=== PATIENT | male | born 1965 | race Caucasian/White ===

== ENCOUNTER 2016-06-07 07:59 | Day surgery (SDC) | payer OTHER ==
[2016-06-06 11:03] VITALS: BMI 23.5
[2016-06-07 11:16] VITALS: BP 145/92; PULSE 84; TEMP 98
--- NOTE | 2016-06-08 14:09 | PATH ---
Surgical Pathology Report Patient Name: VANESA MURRIETA [facility]. Rec. #: [id number] /Age/Gender: 1965 (Age: 51) / M Account: [id number] Location: [facility]-ENDOSCOPY Taken: 06/07/2016 Received: 06/07/2016 Reported: 06/08/2016 Physicians: Ned Callejas D.O. Specimen(s) Received A: BX ANGULARIS OF BODY B: BX STOMACH C: BX DISTAL ESOPHAGUS D: BX MID PROXIMAL ESOPHAGUS Clinical History Dysphagia Gastritis, dysphagia Final Diagnosis A. STOMACH, ANGULARIS AND BODY, BIOPSY: GASTRIC OXYNTIC MUCOSA WITH MODERATE CHRONIC GASTRITIS. IMMUNOSTAIN FOR H. PYLORI IS NEGATIVE FOR ORGANISMS. B. STOMACH, BODY, BIOPSY: GASTRIC OXYNTIC MUCOSA WITH MODERATE CHRONIC GASTRITIS. IMMUNOSTAIN FOR H. PYLORI IS NEGATIVE FOR ORGANISMS. C. ESOPHAGUS, DISTAL, BIOPSY: SQUAMOUS AND COLUMNAR GASTRIC TYPE MUCOSA WITH CHRONIC INFLAMMATION AND MARKED REFLUX TYPE CHANGES. NO INTESTINAL METAPLASIA (MUÑOZ'S ESOPHAGUS) IDENTIFIED. NO EVIDENCE OF EOSINOPHILIC ESOPHAGITIS. D. ESOPHAGUS, MID AND PROXIMAL, BIOPSY: SQUAMOUS EPITHELIUM WITH FOCAL ACTIVE AND CHRONIC INFLAMMATION AND REFLUX TYPE CHANGES. NO EVIDENCE OF EOSINOPHILIC ESOPHAGITIS. SEPARATE FRAGMENT OF COLUMNAR GASTRIC-TYPE MUCOSA; NO INTESTINAL METAPLASIA IDENTIFIED. NO FUNGAL ORGANISMS IDENTIFIED WITH PAS STAIN. Electronically Signed Raman Rosas M.D. Gross Description A. Received in formalin, labeled "biopsy angularis and body" are 3 yarbrough, irregular portions of soft tissue averaging 0.2 cm in greatest dimension. The specimens are submitted in toto in one cassette. B. Received in formalin, labeled "biopsy body of stomach" are 2 yarbrough, irregular portions of soft tissue measuring 0.2 and 0.3 cm in greatest dimension. The specimens are submitted in toto in one cassette. C. Received in formalin, labeled "biopsy distal esophagus" are 3 yarbrough, irregular portions of soft tissue ranging from 0.2-0.4 cm in greatest dimension. The specimens are submitted in toto in one cassette. D. Received in formalin, labeled "biopsy mid proximal esophagus" are 4 yarbrough, irregular portions of soft tissue ranging from 0.1-0.4 cm in greatest dimension. The specimens are submitted in toto in one cassette. 06/07/201606/07/2016
== END 2016-06-07 11:22 | disposition home or self-care (01) ==
LOC: JASU-ENDO 07:59
PROVIDERS: ATTEND Internal Medicine Gastroenterology
PROC: 0DB68ZX Excision of Stomach, Via Natural or Artificial Opening Endoscopic, Diagnostic (ICD-10-PCS; 2016-06-07)
PROC: 0DB18ZX Excision of Upper Esophagus, Via Natural or Artificial Opening Endoscopic, Diagnostic (ICD-10-PCS; 2016-06-07)
PROC: 0DB28ZX Excision of Middle Esophagus, Via Natural or Artificial Opening Endoscopic, Diagnostic (ICD-10-PCS; 2016-06-07)
PROC: 0DB38ZX Excision of Lower Esophagus, Via Natural or Artificial Opening Endoscopic, Diagnostic (ICD-10-PCS; principal; 2016-06-07 09:00)
DX: K29.70 Gastritis, unspecified, without bleeding (principal); R13.10 Dysphagia, unspecified
CPT/HCPCS: 88305-TC; 88312-TC; 88342-TC

== ENCOUNTER 2017-10-08 09:58 | Day surgery (SDC) | payer OTHER ==
[2017-10-08 10:44] LABS: INR 0.95 (0.82-1.09); PROTHROMBIN TIME (PATIENT) 10.7 SEC (9.7-13.0)
[2017-10-08 10:47] LABS: ACTIVATED PTT 32.3 SECONDS (26.9-34.4)
[2017-10-08 10:54] VITALS: BMI 26.6
[2017-10-08] MEDS ORDERED: PROPOFOL 20 ML ONE ×3 (12:16)
[2017-10-08 13:35] VITALS: BP 120/80; PULSE 76; TEMP 98
--- NOTE | 2017-10-09 17:30 | PATH ---
Surgical Pathology Report Patient Name: VANESA MURRIETA [facility]. Rec. #: [id number] /Age/Gender: 1965 (Age: 52) / M Account: [id number] Location: [facility]-ENDOSCOPY Taken: 10/08/2017 Received: 10/08/2017 Reported: 10/09/2017 Physicians: Ned Callejas D.O. Specimen(s) Received A: BX ANTRAL EROSION B: BX BODY C: BX GE JUNCTION D: BX SCHATZKI RING Clinical History Dysphagia Postoperative diagnosis: Hiatal hernia, Schatzki's ring, gastritis Final Diagnosis A. ANTRAL EROSION, BIOPSY: GASTRIC MUCOSA WITH REACTIVE GASTROPATHY. IMMUNOSTAIN IS NEGATIVE FOR H. PYLORI ORGANISMS. B. GASTRIC BODY, BIOPSY: GASTRIC MUCOSA WITH NO DIAGNOSTIC ABNORMALITIES. IMMUNOSTAIN IS NEGATIVE FOR H. PYLORI ORGANISMS. C. GE JUNCTION, BIOPSY: GASTRIC (COLUMNAR CELL) MUCOSA WITH MILD CHRONIC INFLAMMATION. NEGATIVE FOR INTESTINAL METAPLASIA. D. SCHATZKI'S RING, BIOPSY: ESOPHAGEAL (SQUAMOUS) MUCOSA WITH MILD REFLUX ESOPHAGITIS. Electronically Signed Kalli Torres M.D. Gross Description A. Received in formalin, labeled "biopsy antral erosions" are 3 yarbrough, irregular portions of soft tissue averaging 0.3 cm. in greatest dimension. The specimens are submitted in toto in one cassette. B. Received in formalin, labeled "biopsy body" are 2 yarborugh, irregular portions of soft tissue averaging 0.4 cm. in greatest dimension. The specimens are submitted in toto in one cassette. C. Received in formalin, labeled "biopsy GE junction" are 3 yarbrough, irregular portions of soft tissue ranging from 0.1-0.3 cm. in greatest dimension. The specimens are submitted in toto in one cassette. D. Received in formalin, labeled "biopsy Schatzki's ring" are 3 yarbrough, irregular portions of soft tissue ranging from 0.3-0.4 cm. in greatest dimension. The specimens are submitted in toto in one cassette. 10/08/201710/08/2017
== END 2017-10-08 12:40 | disposition home or self-care (01) ==
LOC: JASU-ENDO 09:58
PROVIDERS: ATTEND Internal Medicine Gastroenterology
PROC: 0D738ZZ Dilation of Lower Esophagus, Via Natural or Artificial Opening Endoscopic (ICD-10-PCS; 2017-10-08)
PROC: 0DB68ZX Excision of Stomach, Via Natural or Artificial Opening Endoscopic, Diagnostic (ICD-10-PCS; principal; 2017-10-08 10:45)
DX: K21.0 Gastro-esophageal reflux disease with esophagitis (principal); K44.9 Diaphragmatic hernia without obstruction or gangrene; K22.2 Esophageal obstruction; K25.9 Gastric ulcer, unspecified as acute or chronic, without hemorrhage or perforation
CPT/HCPCS: 36415; 85610; 85730; 88305-TC; 88342-TC